=== PATIENT | male | born 2000 | race Caucasian/White ===

== ENCOUNTER 2021-02-05 02:59 | Emergency (ER) | payer OTHER ==
[~2021-02-05] VITALS: Ht 177.8 cm; Wt 95.0 kg
--- NOTE | 2021-02-05 03:09 | NUR ---
EKG DONE IN TRIAGE.
[2021-02-05 03:20] VITALS: BP 147/87
--- NOTE | 2021-02-05 03:21 | NUR ---
PT C/O OF LEFT SHOULDER PAIN THAT RADIATES TO LEFT SIDE OF CHEST DENIES LIFTING HEAVY OBJECTS, SOB. HX OF ASTHMA. STATES HE THINKS HE PULLED A MUSCLE ERMD AT BEDSIDE FOR EVAL. ATTACHED TO MONITORS, MANUELITO OSULLIVAN AT BEDSIDE. BED IN LOW, CHANGED INTO GOWN, RIALS ENGAGED. CALL LIGHT ON LAP.
--- NOTE | 2021-02-05 03:50 | NUR ---
Patient/Caregiver given discharge instructions and they have confirmed that they understand the instructions. Patient ambulatory with steady gait. NAD, all questions answered appropriately, denies additional needs at this time. No personal belongings left in room after discharge. PT REFUSED CHEST XRAY.
== END 2021-02-05 03:52 | disposition home or self-care (01) ==
LOC: ED 03:51
DX: R07.89 Other chest pain (principal); R94.31 Abnormal electrocardiogram [ECG] [EKG]; F17.210 Nicotine dependence, cigarettes, uncomplicated
CPT/HCPCS: 93005; 99283; 99406